=== PATIENT | male | born 1985 | race Two or more races ===

== ENCOUNTER 2024-03-15 20:13 | Emergency (ER) | payer MEDICAID ==
[~2024-03-15] VITALS: Ht 165.1 cm; Wt 86.4 kg
[2024-03-15 20:40] VITALS: BP 124/68; PULSE 69; RESP 15; TEMP 97.3
[2024-03-15] MEDS: MECLIZINE HCL 25 MG TABLET PO ONE (21:42)
[2024-03-15] MEDS: ONDANSETRON HCL 4 MG TABLET PO ONE (21:42)
[2024-03-15] MEDS: ACETAMINOPHEN 500 MG TABLET PO ONE (21:42)
[2024-03-15 21:51] LABS: BASOPHILS % (AUTO) 0.6 % (0.0-2.0); HEMATOCRIT 44.4 % (41-53); HEMOGLOBIN 15.1 g/dL (13.5-17.5); LYMPHOCYTES # (AUTO) 1.9 K/uL (1.0-4.8); LYMPHOCYTES % (AUTO) 28.9 % (22.0-44.0); MEAN CORPUSCULAR HEMOGLOBIN 31.1 pg (26.0-34.0); MEAN CORPUSCULAR HGB CONC 33.9 G/dL (31.0-37.0); MEAN CORPUSCULAR VOLUME 92 fL (80-100); MONOCYTES # (AUTO) 0.5 K/uL (0.1-1.0); MONOCYTES % (AUTO) 7.7 % (2.0-9.0); NEUTROPHILS # (AUTO) 4.1 K/uL (1.8-7.7); NEUTROPHILS % (AUTO) 60.8 % (40.0-70.0); PLATELET COUNT (AUTO) 343 K/uL (150-450); RED BLOOD CELL COUNT(AUTO) 4.85 MIL/uL (4.50-5.90); RED CELL DISTRIBUTION WIDTH 13.4 % (11.5-14.5); WHITE BLOOD COUNT (AUTO) 6.7 K/uL (4.5-11.0)
[2024-03-15 21:53] LABS: ANION GAP 11 mmol/L (8-16); CALCIUM, TOTAL 8.7 mg/dL (8.8-10.5); CARBON DIOXIDE 25 mmol/L (22-29); CHLORIDE 101 mmol/L (98-107); GLOMERULAR FILTR. RATE CALC > 60 mL/min (>60); GLUCOSE,RANDOM 116 mg/dL (70-110); POTASSIUM 3.8 mmol/L (3.5-5.1); SODIUM SERUM 137 mmol/L (136-145); UREA NITROGEN, BLOOD 16 mg/dL (7-18)
[2024-03-15 21:58] LABS: ALANINE AMINOTRANSFERASE 30 U/L (12-78); ALBUMIN 3.9 g/dL (3.4-5.0); ALKALINE PHOSPHATASE 98 U/L (46-116); ASPARTATE AMINOTRANSFERASE 17 U/L (15-37); BILIRUBIN,TOTAL 0.3 mg/dL (0.1-1.0); TOTAL PROTEIN, SERUM 7.8 g/dL (6.4-8.2)
[2024-03-15] MEDS ORDERED: ONDA-104 PO (22:16)
[2024-03-15] MEDS ORDERED: ACET-66 PO (22:16)
[2024-03-15] MEDS ORDERED: MECL-134 PO (22:16)
[2024-03-15 23:18] LABS: RBC MORPHOLOGY COMMENT ABNORMAL RBC MORPH
== END 2024-03-15 23:00 | disposition home or self-care (01) ==
LOC: EMS 20:14
DX: R51.9 Headache, unspecified (principal); R42 Dizziness and giddiness
CPT/HCPCS: 99284; 70450; 80053; 85025; 36415; Q0162

== ENCOUNTER 2024-05-04 18:54 | Emergency (ER) | payer SELFPAY ==
[~2024-05-04] VITALS: Ht 177.8 cm; Wt 84.1 kg
[~2024-05-04 18:54] MED LIST: ACET-66 PO; MECL-134 PO; ONDA-104 PO
[2024-05-04 19:10] VITALS: TEMP 98
[2024-05-04 19:29] LABS: BASOPHILS % (AUTO) 0.7 % (0.0-2.0); EOSINOPHILS % (AUTO) 4.4 % (1.0-6.0); HEMOGLOBIN 14.8 g/dL (13.5-17.5); LYMPHOCYTES # (AUTO) 2.3 K/uL (1.0-4.8); LYMPHOCYTES % (AUTO) 28.4 % (22.0-44.0); MEAN CORPUSCULAR HEMOGLOBIN 31.6 pg (26.0-34.0); MEAN CORPUSCULAR HGB CONC 34.5 G/dL (31.0-37.0); MEAN CORPUSCULAR VOLUME 92 fL (80-100); MONOCYTES # (AUTO) 0.4 K/uL (0.1-1.0); MONOCYTES % (AUTO) 5.5 % (2.0-9.0); NEUTROPHILS # (AUTO) 4.8 K/uL (1.8-7.7); PLATELET COUNT (AUTO) 348 K/uL (150-450); RED CELL DISTRIBUTION WIDTH 12.9 % (11.5-14.5); WHITE BLOOD COUNT (AUTO) 7.9 K/uL (4.5-11.0)
[2024-05-04 19:35] LABS: ANION GAP 7 mmol/L (8-16); CALCIUM, TOTAL 8.9 mg/dL (8.8-10.5); CARBON DIOXIDE 30 mmol/L (22-29); CHLORIDE 105 mmol/L (98-107); GLOMERULAR FILTR. RATE CALC > 60 mL/min (>60); GLUCOSE,RANDOM 108 mg/dL (70-110); POTASSIUM 3.9 mmol/L (3.5-5.1); SODIUM SERUM 142 mmol/L (136-145); UREA NITROGEN, BLOOD 12 mg/dL (7-18)
[2024-05-04 19:44] LABS: ALANINE AMINOTRANSFERASE 36 U/L (12-78); ALBUMIN 3.6 g/dL (3.4-5.0); ALKALINE PHOSPHATASE 98 U/L (46-116); ASPARTATE AMINOTRANSFERASE 18 U/L (15-37); BILIRUBIN,TOTAL 0.3 mg/dL (0.1-1.0); CREATINE KINASE, TOTAL ONLY 140 U/L (39-308); TOTAL PROTEIN, SERUM 7.4 g/dL (6.4-8.2)
[2024-05-04 19:59] LABS: TROPONIN I-HIGH SENSITIVITY Less Than 4 ng/L (<76)
[2024-05-04] MEDS ORDERED: FLUT16SP NASAL (20:51)
[2024-05-04] MEDS ORDERED: LORA-1370 PO (20:51)
[2024-05-04 21:14] VITALS: BP 124/62; PULSE 64; RESP 16
== END 2024-05-04 21:22 | disposition home or self-care (01) ==
LOC: EMS 18:55
DX: R09.81 Nasal congestion (principal)
CPT/HCPCS: 71045; 80053; 82550; 84484; 85025; 93005; 99285; 36415-L1; 36415-TC